=== PATIENT | female | born 1985 | race American Indian/Alaskan Native ===

== ENCOUNTER 2018-02-27 18:43 | Observation (INO) | payer OTHER ==
[2018-02-27 20:38] LABS: Basophils % (Auto) 0.5 % (0.0-1.8); Eosinophils # (Auto) 0.2 K/mm3 (0.0-0.4); Eosinophils % (Auto) 3.2 % (0.0-4.3); Hematocrit 32.2 % (30.3-42.9); Hemoglobin 10.3 gm/dl (10.1-14.3); Lymphocytes # (Auto) 2.8 K/mm3 (1.2-5.4); Lymphocytes % (Auto) 39.7 % (13.4-35.0); Mean Corpuscular HGB Conc 32 % (30-34); Mean Corpuscular Hemoglobin 28 pg (28-32); Mean Corpuscular Volume 86 fl (79-97); Monocytes # (Auto) 0.4 K/mm3 (0.0-0.8); Monocytes % (Auto) 6.3 % (0.0-7.3); Platelet Count 296 K/mm3 (140-440); Red Blood Count 3.74 M/mm3 (3.65-5.03); Red Cell Distribution Width 13.6 % (13.2-15.2)
[2018-02-27 20:56] LABS: Alanine Aminotransferase 11 units/L (7-56); BUN/Creatinine Ratio 11; Blood Urea Nitrogen 8 mg/dL (7-17); Calcium 9.2 mg/dL (8.4-10.2); Hemolysis Index 3; Lipase 11 units/L (13-60)
[2018-02-27] MEDS ORDERED: MORPHINE IV ONE (22:43)
[2018-02-27] MEDS ORDERED: ZOFRAN IV ONE (22:43)
--- NOTE | 2018-02-27 22:43 | Emergency Department Report ---
HPI - General Chief Complaint: Abdominal Pain Time Seen by Provider: 02/27/18 22:36 - HPI HPI: 32-year-old AA female presents to the emergency department with complaint of right lower quadrant abdominal pain that started yesterday but has been going on intermittently prior to that for the past week. Her visit to [facility] today is her fourth ER visit since last , 5 days ago. Over that time the patient says that she has had multiple workups for this lower abdominal pain including ultrasounds and a CT scan that shows a 7 cm left ovarian cyst. It is associated with some nausea and vomiting but she denies any fever, dysuria, vaginal bleeding or discharge. She has been taking some prescribed Percocet for her pain which "takes the edge off." Currently she says that it is 8 out of 10 in intensity. No recent travel or sick contacts at home. She has a history of a partial hysterectomy. Her EMBEDDED SOFTWARE DEVELOPER is Dr. Frye. The patient says that she is already being treated for a urinary tract infection. ED Past Medical Hx - Past Medical History Hx Psychiatric Treatment: Yes (anxiety) Hx Asthma: Yes - Social History Smoking Status: Never Smoker Substance Use Type: None - Medications Home Medications: Home Medications Medication Instructions Recorded Confirmed Last Taken Type Cyclobenzaprine HCl [FLEXERIL] 10 mg PO Q4-6H PRN #12 tablet 09/15/13 Unknown Rx Hydrocodone Bit/Acetaminophen 1 each PO Q4-6H PRN #12 tablet 09/15/13 Unknown Rx [Lortab 5-500 Tablet] Ibuprofen [Motrin] 800 mg PO TID PRN #20 tablet 09/15/13 Unknown Rx Acetamin/Codeine 120-12Mg/5 ml 15 ml PO Q8H PRN #250 ml 10/22/14 Unknown Rx [Tylenol/Codeine 120-12 mg/5 ml] Ibuprofen [Motrin 800 MG tab] 800 mg PO Q8H PRN #30 tablet 10/22/14 Unknown Rx Ondansetron [Zofran] 4 mg PO Q6HR PRN #15 tablet 10/22/14 Unknown Rx Fluconazole [Diflucan] 100 mg PO QDAY #3 bottle 10/02/16 Unknown Rx LORazepam [Ativan] 0.5 mg PO Q12H PRN #7 tablet 10/02/16 Unknown Rx Nitrofurantoin [place]/M-Cryst 100 mg PO Q12HR #7 capsule 10/02/16 Unknown Rx [Macrobid CAP] ED Review of Systems ROS: Stated complaint: ABD PAIN Other details as noted in HPI Comment: All other systems reviewed and negative Constitutional: denies: chills, fever Eyes: denies: eye pain, eye discharge, vision change ENT: denies: ear pain, throat pain Respiratory: denies: cough, shortness of breath, wheezing Cardiovascular: denies: chest pain, palpitations Gastrointestinal: abdominal pain, nausea, vomiting Genitourinary: denies: urgency, dysuria, discharge Musculoskeletal: denies: back pain, joint swelling, arthralgia Skin: denies: rash, lesions Neurological: denies: headache, weakness, paresthesias Physical Exam - Physical Exam Vital Signs: Vital Signs 02/27/18 20:01 Temperature 99 F Pulse Rate 82 Respiratory 18 Rate Blood Pressure 127/71 O2 Sat by Pulse 100 Oximetry Physical Exam: GENERAL: The patient is well-developed well-nourished. HENT: Normocephalic. Atraumatic. Patient has moist mucous membranes. EYES: Extraocular motions are intact. Pupils equal reactive to light bilaterally. NECK: Supple. Trachea is midline. CHEST/LUNGS: Clear to auscultation. There is no respiratory distress noted. HEART/CARDIOVASCULAR: Regular. There is no tachycardia. There is no murmur. ABDOMEN: Abdomen is soft. Unable to reproduce right lower quadrant abdominal and/or pelvic tenderness to palpation. Patient has normal bowel sounds. There is no abdominal distention. SKIN: Skin is warm and dry. NEURO: The patient is awake, alert, and oriented. The patient is cooperative. The patient has no focal neurologic deficits. The patient has normal speech. MUSCULOSKELETAL: There is no tenderness or deformity. There is no limitation range of motion. There is no evidence of acute injury. ED Course Vital Signs 02/27/18 20:01 Temperature 99 F Pulse Rate 82 Respiratory 18 Rate Blood Pressure 127/71 O2 Sat by Pulse 100 Oximetry ED Medical Decision Making - Lab Data Result diagrams: 02/27/18 20:11 02/27/18 20:11 - Medical Decision Making Patient's labs are mostly unremarkable. She has a very mild urinary tract infection but is already aware of this and being treated for. She has had previous ultrasounds and CT scans done that did not show any appendicitis and apparently she did find a left ovarian cyst. I spoke with the EMBEDDED SOFTWARE DEVELOPER on-call for the patient's EMBEDDED SOFTWARE DEVELOPER service, Dr. Peña, who is aware of this patient presented to [facility] and the plan is for observational admission. They did not request or require any further imaging at this time. - Differential Diagnosis ovarian cyst, diverticulitis, UTI, Critical Care Time: No Critical care attestation.: If time is entered above; I have spent that time in minutes in the direct care of this critically ill patient, excluding procedure time. ED Disposition Clinical Impression: Intractable abdominal pain, Pelvic pain Disposition: OP ADMIT IP TO THIS HOSP Is pt being admited?: Yes Condition: Stable Time of Disposition: 23:20
[2018-02-27] MEDS ORDERED: SUBLIMAZE IV ONE (23:10)
[2018-02-27 23:13] LABS: Bilirubin,Urine NEG (Negative); Blood,Urine NEG (Negative); Color,Urine Yellow (Yellow); Mucus,Urine FEW /HPF; Protein,Urine <15 mg/dL mg/dL (Negative); Urobilinogen,Urine < 2.0 mg/dL (<2.0)
[2018-02-27] MEDS ORDERED: SUBLIMAZE ONE (23:35)
[2018-02-27] MEDS ORDERED: LACTATED RINGERS 1,000 ML ONE (23:36)
[2018-02-28] MEDS ORDERED: MORPHINE IV ONE (02:12)
--- NOTE | 2018-02-28 07:51 | History and Physical Report ---
History of Present Illness Date of examination: 02/28/18 Date of admission: 02/27/18 22:53 Chief complaint: Pelvic pain; ovarian cyst History of present illness: Visit Type: Acute Visit CC: pelvic pain. History of Present Illness: Patient presents with complaints of pelvic pain. Patient states she was eval and treated at [facility] ED and TVUS was performed which revealed an ovarian mass....Angelia Echeverria Pt has been to ED ( [facility] yesterday) [place] ( times two last week) for pelvic pain that has gotten progressively worse. Sono with [facility] does show what appears to be a 7cm ovarian cyst that at the time of sono done 02/24/18 had increased in size from sono doen on 02/22/18 in which sono was stated to be 5cm. CT scan doen on 02/22/18 again showed a 8.5x7.4 cytic lesion with a 5cm ovoid mass on post margin of the cyst c/w blood clot as well as free fluid in the pelvis. Today she states the pain is a 8/10 and that the pain meds given are not fully relieving the pain. She does c/o frequency and urgency but was also dx 'd witha uti for which she is taking antibx. Pt slao states that she had heavy vaginal bleeding with passaged of silver dollar sized clots and feeling as if abdomen is more distended. Pt has not had any bleeding since supracervical hyst in 2017. The bleedig has since stopped. It occurred a few days after her pain started. Pt states that in ER with [facility](son not avaiable to me at this time) she was todl the cyst was still present and same size as reported at [facility] and that "it was not twisted on itself and just to f/u with my weather clerk." I d/w that due to the fact her pain has worsened she needs to f/u in ER for evaluaiton and possible admission for pain managment and or removal of the ovarian mass/cyst. Pt expressed understanding stating she will f/u in ER for the pain. Vital Signs: Patient Profile: 32 Years Old Female Height: 64 inches Weight: 208 pounds BMI: 35.70 BP sittin / 70 (left arm) Pt. in pain? 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 of genital herpes: yes Hx of STD: HSV Active Medications (reviewed today): PROMETHAZINE HCL 12.5 MG ORAL TABLET (PROMETHAZINE HCL) MACROBID 100 MG ORAL CAPSULE (NITROFURANTOIN MONOHYD MACRO) PERCOCET 5-325 MG ORAL TABLET (OXYCODONE-ACETAMINOPHEN) Current Allergies (reviewed today): No known allergies Past Medical History: Reviewed history from 11/28/2011 and no changes required: Negative Past Medical History Past Surgical History: Reviewed history from 12/01/2017 and no changes required: Supracervical Hysterectomy with BS -laproscopic 2017 Lipo of back and flanks- 2017 Family History Summary: Reviewed history Last on 03/04/2016 and no changes required:02/28/2018 General Comments - FH: Mom had DVT when . No Family History of Breast Cancer No Family History of Colon Cancer No Family History of Diabetes No Family History of Hypertension No Family History of Ovarvian Cancer Social History: Reviewed history from 12/01/2017 and no changes required: Patient is single Smoking History: Patient has never smoked. 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 History: denies: other (see hpi) Social history: no significant social history, single Medications and Allergies Allergies Allergy/AdvReac Type Severity Reaction Status Date / Time No Known Allergies Allergy Unverified 09/15/13 09:38 Home Medications Medication Instructions Recorded Confirmed Last Taken Type Cyclobenzaprine HCl [FLEXERIL] 10 mg PO Q4-6H PRN #12 tablet 09/15/13 Unknown Rx Hydrocodone Bit/Acetaminophen 1 each PO Q4-6H PRN #12 tablet 09/15/13 Unknown Rx [Lortab 5-500 Tablet] Ibuprofen [Motrin] 800 mg PO TID PRN #20 tablet 09/15/13 Unknown Rx Acetamin/Codeine 120-12Mg/5 ml 15 ml PO Q8H PRN #250 ml 10/22/14 Unknown Rx [Tylenol/Codeine 120-12 mg/5 ml] Ibuprofen [Motrin 800 MG tab] 800 mg PO Q8H PRN #30 tablet 10/22/14 Unknown Rx Ondansetron [Zofran] 4 mg PO Q6HR PRN #15 tablet 10/22/14 Unknown Rx Fluconazole [Diflucan] 100 mg PO QDAY #3 bottle 10/02/16 Unknown Rx LORazepam [Ativan] 0.5 mg PO Q12H PRN #7 tablet 10/02/16 Unknown Rx Nitrofurantoin [place]/M-Cryst 100 mg PO Q12HR #7 capsule 10/02/16 Unknown Rx [Macrobid CAP] Active Meds: Active Medications Lactated Ringer's (Lactated Ringers) 1,000 mls @ 125 mls/hr IV DIRECT PRICILA Nitrofurantoin Macrocrystals (Macrobid) 100 mg PO Q12HR PRICILA Review of Systems All systems: negative - Vital Signs Vital signs: Vital Signs Temp Pulse Resp BP Pulse Ox 99 F 82 18 127/71 100 02/27/18 20:01 02/27/18 20:01 02/27/18 20:01 02/27/18 20:01 02/27/18 20:01 Temp Pulse Resp BP Pulse Ox 99 F 82 18 127/71 100 02/27/18 20:01 02/27/18 20:01 02/28/18 02:28 02/27/18 20:01 02/27/18 20:01 - Physical Exam Cardiovascular: Normal S1, Normal S2 Lungs: Positive: Clear to auscultation, Normal air movement Abdomen: Positive: normal appearance, soft, distention, tenderness, normal bowel sounds. Negative: guarding Genitourinary (Female): Positive: normal external genitalia, normal perenium Vagina: Positive: normal moisture Uterus: Positive: absent Adnexa: left: mass (fullness in left adnexa/suprapubic region) Extremities: Positive: normal. Negative: tenderness, edema Results Result Diagrams: 02/27/18 20:11 02/27/18 20:11 Abnormal lab results 02/27/18 02/27/18 02/27/18 Range/Units 20:11 20:11 22:47 Lymph % (Auto) 39.7 H (13.4-35.0) % Lipase 11 L (13-60) units/L Urine WBC (Auto) 8.0 H (0.0-6.0) /HPF All other labs normal. Assessment and Plan - Patient Problems (1) H/O pelvic mass Current Visit: Yes Status: Acute Plan to address problem: -7 to 8cm hemorrhagic cyst dx'd on outside studies. Pain getting prgressively worse. -To OR for operative laparoscopy as patient pain is not improving with expected management nor is cyst resolving. -All risks benefits and alternatives including continued observation with pain management were discussed with the patient. Patient desires removal of mass at this time due to pain getting progressively worse. Consents were signed and placed on the chart. (2) Intractable abdominal pain Current Visit: Yes Status: Acute (3) Pelvic pain Current Visit: Yes Status: Acute
[2018-02-28] MEDS: LACTATED RINGERS 1,000 ML IV SCH ×2 (07:54→13:20)
[2018-02-28] MEDS ORDERED: SUBLIMAZE IV ONE (09:55)
[2018-02-28] MEDS ORDERED: PRENATAL VITAMIN PO SCH (10:00)
[2018-02-28] MEDS ORDERED: SUBLIMAZE IV NR (10:00)
[2018-02-28] MEDS: MACROBID PO SCH ×2 (10:25→23:11)
--- NOTE | 2018-02-28 12:41 | Anesthesia Consultation ---
Anesthesia Consult and Med Hx Date of service: 02/28/18 - Airway Anesthetic Teeth Evaluation: Good ROM Head & Neck: Adequate Mental/Hyoid Distance: Adequate Mallampati Class: Class II Intubation Access Assessment: Probably Good - Pulmonary Exam CTA: Yes - Cardiac Exam Cardiac Exam: RRR - Pre-Operative Health Status ASA Pre-Surgery Classification: ASA2 Proposed Anesthetic Plan: General - Pulmonary Hx Asthma: Yes
--- NOTE | 2018-02-28 12:41 | Anesthesia Day of Surgery ---
Anesthesia Day of Surgery - Day of Surgery Patient Examined: Yes Patient H&P Reviewed: Yes Patient is NPO: Yes
[2018-02-28] MEDS ORDERED: TRANSDERM-SCOP TD NR (13:00)
[2018-02-28] MEDS ORDERED: ZOFRAN IV PRN (13:00)
[2018-02-28] MEDS ORDERED: PEPCID IV NR (13:00)
[2018-02-28] MEDS ORDERED: VERSED IV NR (13:00)
[2018-02-28] MEDS ORDERED: DEMEROL IV PRN (13:00)
[2018-02-28] MEDS ORDERED: DILAUDID IV PRN (13:00)
[2018-02-28] MEDS ORDERED: XYLOCAINE MPF 2% ONE (14:53)
[2018-02-28] MEDS ORDERED: ZEMURON IV ONE (14:53)
[2018-02-28] MEDS ORDERED: SUBLIMAZE ONE (14:54)
[2018-02-28] MEDS ORDERED: DIPRIVAN 10 MG/ML IV ONE (14:54)
[2018-02-28] MEDS ORDERED: MARCAINE 0.25% INFILTRATI ONE ×2 (15:10→16:41)
[2018-02-28] MEDS ORDERED: ANCEF ONE ×2 (15:31)
[2018-02-28] MEDS ORDERED: NACL 0.9% 1000 ML 1,000 ML ONE ×2 (16:10→18:16)
[2018-02-28] MEDS ORDERED: ZOFRAN ONE (16:21)
[2018-02-28] MEDS ORDERED: DECADRON ONE (16:22)
[2018-02-28] MEDS ORDERED: NACL 0.9% IR ONE (16:41)
[2018-02-28] MEDS ORDERED: METHYLENE BLUE ONE (16:46)
[2018-02-28] MEDS ORDERED: METHYLENE BLUE IRRIGATION ONE (16:58)
--- NOTE | 2018-02-28 17:25 | Operative Report ---
Operative Report Operative Report: Date of procedure: 02/28/2018 Pre-operative diagnosis: Ovarian mass Severe pelvic pain Post-operative diagnosis: Same plus torsion of ovarian mass on the right side Procedure name(s): Operative laparoscopy Examined anesthesia Retrograde filling of the rectum with methylene blue Right oophorectomy Surgeon: Dr. 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 endotracheal anesthesia EBL: 25 mL Urine output: 750 mL of clear urine Fluids: 1500 mL Findings: Enlarged right ovary with complete torsion. Cyst of ovary included the entire ovary with very little ovarian tissue noted. Serous appearing fluid drained from ovarian cyst. Indications: Patient presents with severe abdominal pain that became progressively worse over the last week. Patient was noted to have a 7 cm what appeared to be hemorrhagic cyst on the CT scan as well as pelvic ultrasound. On those studies there was no evidence of torsion noted as blood flow was noted to be stained to the ovary. It was noted on the studies that the cyst appeared to be coming from the left ovary however the cyst was noted to be on the right ovary. Decision was made at this time to proceed with the above stated procedure due to patient's increasing pain that was not being relieved by pain medication. Procedure: Patient was taken to the operating room where she was placed under general endotracheal anesthesia she was then placed in dorsal lithotomy position with legs in Chava stirrups. She was then prepped and draped in normal sterile fashion. A sponge stick was placed inside of the vagina after the Hamilton catheter had been placed. A supraumbilical incision was then made to allow passage of the 5 mm trocar under direct visualization with the camera. The abdomen was then insufflated. 2 additional trochars were then placed. The Zoya tip LigaSure device was then used to cauterize and ligate the ovary from the infundibulopelvic ligament. Excellent hemostasis was noted. Ureter was noted on the right side and was noted to be patent. Left ovary appeared normal. The abdomen was then irrigated. An irrigating the abdomen a small portion of the bowel was caught in the suction device. We released the bowel appeared to have a small operation on the superficial surface. Gen. surgery was then called in as a consultation to evaluate need for repair. Dr. Montoya stated that retrograde filling of the rectum with methylene blue should be done. This was done. No spillage was noted inside the abdomen. Dr. Mireles was present at the time that the retrograde filling was being done and again noted no spillage of methylene blue from the bowel. The integrity of the bowel was noted to be intact. Dr. Montoya then also returned after the retrograde filling of the bladder and again noted that there was no spillage of methylene blue inside the abdomen. As the methylene blue was being placed the proximal and of the bowel was pressed with the probe in order to apply pressure to see if there would be any spillage of the methylene blue. An as stated above there was no spillage of the methylene blue inside the abdominal cavity and the bowel integrity was believed to be intact. It was at this point that all incisions were closed. The 10mm incision was closed using the Isiah Bellamy introducer in order to incorporate the fascia and completely close the fascia. Under direct visualization the fascia was noted to be closed with the suture. All remaining trochars were then removed from the abdomen and the gas was released from the abdomen. The remaining incisions were closed with 4-0 Monocryl in a subcuticular stitch and surgical glue the incisions were then injected with Marcaine without epi. The patient tolerated the procedure well sponge lap and needle counts were all correct 3 patient was given 2 g of Ancef prior to the onset of procedure.
--- NOTE | 2018-02-28 17:53 | Post Anesthesia Evaluation ---
- Post Anesthesia Evaluation Patient Participated: Yes Airway Patent: Yes Stable Respiratory Function: Yes Nausea/Vomiting: No Temp > 96.8F: Yes Pain Manageable: Yes Adequeate Hydration: Yes Anesthesia Complications: No
[2018-02-28] MEDS ORDERED: ANCEF/NS 1 GM/50 ML 1 GM/50 ML BAG IV SCH (18:00)
[2018-02-28] MEDS: TORADOL IV SCH ×2 (20:07→23:21)
--- NOTE | 2018-02-28 20:30 | Event Note ---
Date: 02/28/18 pt pain is well controlled. Findings in sx were d/w pt. She is tolerating a soft diet w/o nausea and will be advanced in the am for breakfast. if remains stable and afebrile will plan for d/c home tomorrow afternoon. Pt given pictures from surgery. She is aware that surgeon that was consulted during surgery will come to see her in the am. Will con't routine post op care at this time and anticipate d/c home in the am.
[2018-02-28] MEDS: NORCO 5/325 PO PRN (23:11)
[2018-02-28] MEDS: ceFAZolin 1 GM in NACL 0.9% 20 ML IV SCH (23:13)
[2018-03-01] MEDS ORDERED: MYLICON PO PRN (03:00)
[2018-03-01] MEDS ORDERED: SUBLIMAZE IV ONE (03:00)
[2018-03-01 05:29] LABS: Hematocrit 29.8 % (30.3-42.9); Hemoglobin 9.3 gm/dl (10.1-14.3)
[2018-03-01] MEDS: TORADOL IV SCH ×2 (06:04→12:20)
[2018-03-01] MEDS: ceFAZolin 1 GM in NACL 0.9% 20 ML IV SCH (06:04)
--- NOTE | 2018-03-01 06:32 | Progress Note ---
Assessment and Plan - Patient Problems (1) H/O pelvic mass Current Visit: Yes Status: Acute (2) Intractable abdominal pain Current Visit: Yes Status: Acute (3) Pelvic pain Current Visit: Yes Status: Acute (4) S/P right oophorectomy Current Visit: Yes Status: Acute Plan to address problem: -routine post op care -d/c home this pm if tolerated breakfast and lunch -f/u in office in one week. Subjective - Subjective Date of service: 03/01/18 Principal diagnosis: POD #1 s/p laproscopic oophrectomy for large ovarian cyst with torsion Interval history: Pt doing well this am. She did have some gas pain during the night that has since resolved. I d/w pain goals and importance of ambulation. Pt expressed understanding. No n/v with clear/soft diet so will advance to regular diet this am and if tolerates it will d/c home. Patient reports: appetite normal, voiding normally, pain well controlled, no dizzy ambulation Objective - Vital Signs Latest vital signs: Vital Signs Temp Pulse Resp Resp BP BP Pulse Ox 03/01/18 04:23 98.5 F 67 18 103/51 95 03/01/18 00:25 99.1 F 60 18 111/56 98 02/28/18 21:20 98.7 F 76 20 111/60 02/28/18 20:37 18 02/28/18 20:07 18 02/28/18 20:00 18 02/28/18 18:40 98.7 F 78 16 125/78 100 02/28/18 18:30 98.7 F 77 16 125/78 100 02/28/18 18:24 98.2 F 71 16 110/56 100 02/28/18 18:10 68 15 103/58 100 02/28/18 17:55 69 16 102/54 100 02/28/18 17:40 69 19 104/79 99 02/28/18 17:35 79 17 110/70 96 02/28/18 17:30 79 22 115/70 93 02/28/18 17:23 96.7 F L 89 14 105/72 94 02/28/18 12:30 98.2 F 63 16 104/75 100 02/28/18 11:15 98.6 F 61 20 113/72 90 02/28/18 07:37 98.6 F 60 16 116/70 100 Intake and Output 02/28/18 02/28/18 03/01/18 14:59 22:59 06:59 Intake Total 1129.167 540 360 Output Total 1125 Balance 1129.167 -585 360 Intake: IV 1129.167 300 Lactated Ringers 1,000 ml 679.167 @ 125 mls/hr IV DIRECT PRICILA Rx#:[id number] Intake, Free Water 240 360 Output: Urine 1125 Void 400 Other: Total, Output Amount 400 Voiding Method Toilet Toilet # Voids Void 1 - Exam Cardiovascular: Present: Normal S1, Normal S2 Lungs: Present: Clear to auscultation, Normal air movement Abdomen: Present: normal appearance, soft. Absent: distention, tenderness, guarding Extremities: Present: normal. Absent: tenderness, edema Deep Tendon Reflex Grade: Normal +2 Incision: Present: normal, dry, intact - Labs Labs: Abnormal lab results 03/01/18 Range/Units 04:52 Hgb 9.3 L (10.1-14.3) gm/dl Hct 29.8 L (30.3-42.9) %
--- NOTE | 2018-03-01 06:35 | Discharge Summary ---
Providers - Providers Date of Admission: 02/27/18 22:53 Date of discharge: 03/01/18 Attending physician: ROBERTO HALE Primary care physician: INFANTRY OPERATIONS SPECIALIST Hospitalization Reason for admission: other (pelvic pain; ovarian mass) Delivery: other (s/o oophrectomy) Procedure: other (oophrectomy) Procedure details: see op note Incision: normal, dry, intact Hospital course: Pt had routine post op care after procedure that has not been complicated. Pt will be d/c home today if tolerates regular diet w/o nausea or vomiting. Condition at discharge: Good Disposition: DC-01 TO HOME OR SELFCARE - Discharge Diagnoses (1) H/O pelvic mass Status: Resolved (2) Intractable abdominal pain Status: Resolved (3) Pelvic pain Status: Resolved (4) S/P right oophorectomy Status: Acute Plan - Discharge Medications Prescriptions: Ferrous Sulfate [Feosol 325 MG tab] 325 mg PO QDAY #30 tablet Fluconazole [Diflucan] 150 mg PO QWEEK PRN #2 tablet PRN Reason: Itching Ibuprofen 800 mg PO Q6HR #30 tablet oxyCODONE /ACETAMINOPHEN [Percocet 5/325] 1 tab PO Q4HR #30 tab - Provider Discharge Summary Activity: routine, no sex for 6 weeks, no heavy lifting 4 weeks Diet: routine Instructions: routine Additional instructions: [] Smoking cessation referral if applicable(refer to patient education folder for contact #) [] Refer to [facility]'s [facility] Booklet Call your doctor immediately for: * Fever > 100.5 * Heavy vaginal bleeding ( >1 pad per hour) * Severe persistent headache * Shortness of breath * Reddened, hot, painful area to leg or breast * Drainage or odor from incision. * Keep incision clean and dry at all times and follow doctor's instructions regarding bathing/showering - Follow up plan Follow up: PRIMARY CARE, [Primary Care Provider] - 3-5 Days Forms: [facility] Discharge Summary
[2018-03-01] MEDS: NORCO 5/325 PO PRN (08:35)
[2018-03-01] MEDS: MACROBID PO SCH (10:32)
--- NOTE | 2018-03-01 14:32 | Progress Note ---
Subjective Patient Reports: Positive: feels better, pain is less, flatus Narrative: seen yesterday in the OR as per Dr Nigel Jensen , as to ? lacerated serosa in th upper rectum , methylene bue instalation per rectum showed no leak , tday Pt feels OK . home tday . Objective Vital Signs - 12hr 03/01/18 03/01/18 03/01/18 04:23 08:00 12:10 Temperature 98.5 F 98.2 F 98.8 F Pulse Rate 67 62 71 Respiratory 18 16 22 Rate Blood Pressure 103/51 113/64 Blood Pressure 103/69 [Left] O2 Sat by Pulse 95 99 Oximetry - Labs 03/01/18 04:52 02/27/18 20:11
--- NOTE | 2018-03-01 14:38 | Event Note ---
Date: 03/01/18 (RN called Pt req RX Diflucan) RX sent via hospital system to [facility] [phone]
[2018-03-01 17:07] VITALS: BP 122/69
== END 2018-03-01 15:20 | disposition home or self-care (01) ==
LOC: ED 18:43 → OB 22:53
PROVIDERS: ADMIT Obstetrics & Gynecology; ATTEND Obstetrics & Gynecology
DX: R19.00 Intra-abdominal and pelvic swelling, mass and lump, unspecified site (principal); R10.2 Pelvic and perineal pain; N83.201 Unspecified ovarian cyst, right side
CPT/HCPCS: 36415; 58661; 80053; 81001; 83690; 85014; 85018; 85025; 86850; 86900; 86901; 87086; 88112; 88305; 96374; 96375; 96376; 99285; G0378; J0690; J1100; J1885; J2175; J2250; J2270; J2405; J2704; J3010; J7030; J7120; Q9968